=== PATIENT | female | born 1990 | race Caucasian/White ===

== ENCOUNTER 2018-03-23 10:43 | Outpatient (CLI) | payer OTHER | END 2018-03-23 10:44 | disposition home or self-care (01) | LOC: CTENTCT 10:43 | PROVIDERS: ATTEND Specialist | DX: J33.9 Nasal polyp, unspecified (principal) | CPT/HCPCS: 70486 ==

== ENCOUNTER → 2018-04-14 | Day surgery (SDC) | payer OTHER ==
[2018-04-13 11:08] VITALS: BMI 20.5
[~2018-04-14] MED LIST: Bacitracin Zinc Ointment 30 gm TUBE ONE; Dexamethasone 20 MG/5 ML VIAL ONE; Fentanyl 100 MCG/2 ML VIAL ONE; Glycopyrrolate 0.2 MG/ML 5 ML SYRINGE ONE; Hydrocodone-Acetamin 15 ML UDCUP ONE; Lidocaine 1% PF 5 ML VIAL ONE; Lidocaine 1% w/Epinephrine 1:100K 30 ML VIAL ONE; Non-Formulary Medication 1 EACH PO PRN; Ondansetron HCl/PF 4 MG/2 ML Vial IVP PRN; Ondansetron HCl/PF 4 MG/2 ML Vial ONE; Oxymetazoline HCl 0.05% ( 15 ML ) ONE; PROPOFOL 200 MG/20 ML VIAL ONE; Promethazine HCl 25 MG/ML VIAL IM/IV PRN
[2018-04-14 11:08] LABS: BHCG - Serum Negative (NEGATIVE); Pregs Control Background? CLEAR/WHITE (CLR/WHITE); Pregs Control Bar Appear? YES (CONTROL BAR)
--- NOTE | 2018-04-14 13:45 | OP ---
PREOPERATIVE DIAGNOSES: Profound septal deformity and hypertrophic obstructive inferior turbinates. POSTOPERATIVE DIAGNOSES: Profound septal deformity, obstructive inferior turbinate hypertrophy and a llergic fungal sinusitis with nasal polyposis. PROCEDURES PERFORMED: 1. Septoplasty. 2. Bilateral nasal endoscopy with submucosal resection. 3. Bilateral nasal endoscopy with nasal polypectomy. 4. Bilateral nasal endoscopy with total ethmoidectomy. 5. Bilateral nasal endoscopy with maxillary antrostomy with removal of tissue. PROCEDURE IN DETAIL: After consent was obtained, the patient was identified, brought to the operatin g room, and placed on the operating room table in the supine position. Consent was obtained, notifyi ng the patient of the possibility of additional infections, bleeding, brain injury, and eye/orbital i njury. The patient was placed on the operating room table, and general endotracheal anesthesia and intravenous access was obtained. The patient was then positioned, prepped and draped for endoscopic sinus surgery. Nasal preparation included trimming nasal vestibular hairs and spraying in topical Af rin. We then placed Afrin topical solution on nasal pledgets and strategically located them intranas ally. The perinasal mucosa was injected with 1% lidocaine with 1:100,000 epinephrine in the submucop erichondrial plane of the septum, lateral nasal wall, and anterior to the uncinate. The patient was then prepped and draped in a sterile fashion and positioned for endoscopic sinus surgery. (Endoscopic Sinus Surgery) With the 0-degree endoscope, the patient underwent systematic nasal endoscopy. There were no suspici ous internasal masses or lesions identified. We then focused our attention to the osteomeatal comple x region under the middle turbinate. (Benjamin Bullosa) The benjamin bullosa was identified and entered with a sickle blade. The lateral aspect of the benjamin bullosa was meticulously resected while leaving the medial most aspect to form the new middle turbina te. Attention was made not to violate the mucosa. The straight biting punches and micro-debrider we re used to remove shrouds of mucosa and bony debris. (Maxillary Antrostomy) The uncinate was then identified and the extent of the uncinate was appreciated by out-fracturing the uncinate with the ball-tip probe. We then used the sickle blade to disarticulate the uncinate from the lateral nasal wall. This was then removed with straight biting and upbiting punches with the rem aining shrouds of mucosa and bony septum removed with the micro-debrider. The natural os of the maxi llary sinus was then identified and enlarged with the maxillary punches and back biting forceps. (Total Ethmoidectomy) The anterior face of the ethmoid bulla was entered and with the micro-debrider, dissection continued posteriorly to the ground lamella. The limits of dissection included the insertion of the middle tur binate, medial orbital wall, and base of skull. We similarly identified the frontal recess and remov ed shrouds of bone and debris in that region to obtain patency into the agger nasi region and frontal recess. We then entered the ground lamella and its anteroinferior aspect and proceeded posteriorly, opening the posterior ethmoid air-cell system. Again, the limits of dissection included the base of skull and medial orbital wall. (Sphenoidotomy) The anterior face of the sphenoid was identified and entered in its extreme anteroinferior aspect. A sphenoid punch was then used to enlarge the sphenoidotomy and no injury to the optic nerve or corporate strategy intern al carotid artery occurred. (Outfracture of the Inferior Turbinates) The inferior turbinates were visualized under endoscopic visualization and outfractured with the elev ator. The inferolateral edge of the inferior turbinate was then cauterized along its length with the suction cautery without difficulty. (Outfracture & Cautery of the Inferior Turbinates) The inferior turbinates were visualized with a 0-degree endoscope and outfractured with a Dorothea eleva tor. The inferior medial aspect was cauterized with the electrocautery. Hemostasis was obtained . After adequate airway was established, we turned our attention to the contralateral side and used a s imilar procedure. Again, a [place] elevator was used to outfracture inferior turbinates under endoscop ic visualization. With a suction cautery, the free inferior medial aspect was cauterized under direc t visualization along the length of the inferior turbinate. (Septoplasty) After local anesthesia was infiltrated into the submucoperichondrial plane, a standard Castro incisi on was made with a #15 blade down to the level of the septal cartilage. The caudal elevator was used to elevate the mucoperichondrium from the underlying cartilage. We then proceeded beyond the bony c artilaginous junction and elevated the bony periosteum as well. Great attention was paid to the spur to prevent rent formation in the septal flap. A transcartilaginous incision was then made, while pre serving an adequate dorsal and caudal cartilaginous strut for tip support. The deformed cartilage wa s removed and disarticulated from the bony cartilaginous junction and maxillary crest. This was plac ed in saline and would later be crushed and returned to the mucoperichondrial envelope. We then elev ated the contralateral periosteum from the bony cartilaginous region and removed the deformed portion s of the bone and bony spurs. The cartilage was then crushed and placed back into the mucoperichondr ial envelope and the mucosa was re-approximated with a quilting stitch composed of rapidly absorbent gut suture. The K[place]wick incision was also closed with interrupted gut suture. At the completion of the case, Wall splints were placed and suture secured to the caudal septum. At this point, we then turned our attention to the contralateral side and proceeded with endoscopic s inus surgery. At the completion of the case, Rice keel splints were placed in the ethmoid cavities after the ethmoidectomy. There were no complications. The patient tolerated the procedure well and was discharged to the recovery room in stable condition prior to return to the preoperative Day Stay with ultimate discharge home. Prescriptions for pain medication and antibiotics were provid ed. The patient received intramuscular Depo-Medrol during the case.
== END ==
LOC: SDC 10:24
PROVIDERS: ATTEND Specialist
PROC: 09SM0ZZ Reposition Nasal Septum, Open Approach (ICD-10-PCS; principal; 2018-04-14)
PROC: 099X8ZZ Drainage of Left Sphenoid Sinus, Via Natural or Artificial Opening Endoscopic (ICD-10-PCS; principal; 2018-04-14)
PROC: 09SL8ZZ Reposition Nasal Turbinate, Via Natural or Artificial Opening Endoscopic (ICD-10-PCS; principal; 2018-04-14)
PROC: 099R8ZZ Drainage of Left Maxillary Sinus, Via Natural or Artificial Opening Endoscopic (ICD-10-PCS; principal; 2018-04-14)
PROC: 09TU8ZZ Resection of Right Ethmoid Sinus, Via Natural or Artificial Opening Endoscopic (ICD-10-PCS; principal; 2018-04-14)
PROC: 09TV8ZZ Resection of Left Ethmoid Sinus, Via Natural or Artificial Opening Endoscopic (ICD-10-PCS; principal; 2018-04-14)
PROC: 099W8ZZ Drainage of Right Sphenoid Sinus, Via Natural or Artificial Opening Endoscopic (ICD-10-PCS; principal; 2018-04-14)
PROC: 09BL8ZZ Excision of Nasal Turbinate, Via Natural or Artificial Opening Endoscopic (ICD-10-PCS; principal; 2018-04-14)
PROC: 099Q8ZZ Drainage of Right Maxillary Sinus, Via Natural or Artificial Opening Endoscopic (ICD-10-PCS; principal; 2018-04-14)
DX: J34.2 Deviated nasal septum (principal); J34.3 Hypertrophy of nasal turbinates; J32.8 Other chronic sinusitis; B48.8 Other specified mycoses; J33.9 Nasal polyp, unspecified; F17.210 Nicotine dependence, cigarettes, uncomplicated; J30.1 Allergic rhinitis due to pollen; J30.89 Other allergic rhinitis; Z79.899 Other long term (current) drug therapy
CPT/HCPCS: 36415; 84703; 85014; 96374; J1100; J2001; J2405; J2704; J3010